=== PATIENT | male | born 1990 | race Caucasian/White ===

== ENCOUNTER 2017-06-02 22:09 | Emergency (ER) | payer MEDICAID ==
[~2017-06-02] VITALS: Ht 172.7 cm; Wt 67.5 kg
[~2017-06-02 22:09] MED LIST: ABAC1TAB14 PO; ALBU18HF INH; ALBUTEROL INH; AMOX-291; FLUT9.9S INH; LEVO750T26 PO; [UNRECOGNIZED DRUG - OTHER]
[2017-06-02 22:20] VITALS: BP 117/76
== END 2017-06-02 23:51 | disposition home or self-care (01) ==
LOC: ED 23:45
DX: A63.0 Anogenital (venereal) warts (principal); J45.909 Unspecified asthma, uncomplicated; Z86.14 Personal history of Methicillin resistant Staphylococcus aureus infection; F17.200 Nicotine dependence, unspecified, uncomplicated
CPT/HCPCS: 87491; 87591; 99284

== ENCOUNTER 2017-08-02 18:31 | Emergency (ER) | payer MEDICAID ==
[~2017-08-02] VITALS: Ht 170.2 cm; Wt 67.7 kg
[2017-08-02 18:35] VITALS: BP 132/73
[2017-08-02 19:19] LABS: BASOPHILS # (AUTO) 0.03 x10^3/uL (0-0.1); BASOPHILS % (AUTO) 0 % (0-1); EOSINOPHILS # (AUTO) 0.36 x10^3/uL (0-0.4); EOSINOPHILS % (AUTO) 4 % (1-7); LYMPHOCYTES # (AUTO) 3.14 x10^3/uL (1-3.4); LYMPHOCYTES % (AUTO) 38 % (22-44); MD NO; MEAN CORPUSCULAR HEMOGLOBIN 28.7 pg (27.5-34.5); MEAN CORPUSCULAR HGB CONC 33.6 g/dL (33.2-36.2); MEAN CORPUSCULAR VOLUME 85.4 fL (81-97); MEAN PLATELET VOLUME 7.4 fL (7.4-10.4); MONOCYTES # (AUTO) 0.71 x10^3/uL (0.2-0.8); MONOCYTES % (AUTO) 9 % (2-9); NEUTROPHILS # (AUTO) 4.09 x10^3/uL (1.8-6.8); NEUTROPHILS % (AUTO) 49 % (42-75); PLATELET COUNT 343 x10^3/uL (130-400); RED BLOOD COUNT 5.15 x10^6/uL (4.38-5.82); RED CELL DISTRIBUTION WIDTH 13.3 % (9.4-14.8)
[2017-08-02 19:30] LABS: ALBUMIN 3.4 g/dL (3.4-5.0); ANION GAP 9 mmol/L (5-15); CALCIUM 8.3 mg/dL (8.5-10.1); CHLORIDE 103 mmol/L (98-107); CREATININE 0.95 mg/dL (0.7-1.3)
[2017-08-02 20:28] LABS: MICROSCOPIC NOT IND
[2017-08-02 20:30] LABS: CULTURE INDICATED? NO
== END 2017-08-02 21:00 | disposition home or self-care (01) ==
LOC: ED 20:59
DX: K62.5 Hemorrhage of anus and rectum (principal); F17.210 Nicotine dependence, cigarettes, uncomplicated
CPT/HCPCS: 36415; 80048; 81003; 82040; 85025; 99285

== ENCOUNTER 2017-10-25 04:58 | Emergency (ER) | payer MEDICAID ==
[~2017-10-25] VITALS: Ht 170.2 cm; Wt 67.4 kg
[2017-10-25 05:01] VITALS: BP 119/88
[2017-10-25] MEDS ORDERED: METHOCARBAMOL 750 MG TABLET ONE (05:21)
[2017-10-25] MEDS ORDERED: KETOROLAC 30 MG/1 ML ONE (05:21)
[2017-10-25] MEDS ORDERED: KETOROLAC 30 MG/1 ML IM ONE (05:30)
[2017-10-25] MEDS ORDERED: METHOCARBAMOL 750 MG TABLET PO ONE (05:30)
== END 2017-10-25 06:48 | disposition left against medical advice (07) ==
LOC: ED 06:42
DX: M25.511 Pain in right shoulder (principal); Z21 Asymptomatic human immunodeficiency virus [HIV] infection status
CPT/HCPCS: 73030; 96372; 99284; J1885

== ENCOUNTER 2017-10-25 11:29 | Emergency (ER) | payer MEDICAID ==
[~2017-10-25] VITALS: Ht 172.7 cm; Wt 66.9 kg
[2017-10-25] MEDS ORDERED: DIAZEPAM 5 MG TABLET PO ONE (12:00)
[2017-10-25] MEDS ORDERED: DIAZEPAM 5 MG TABLET ONE (12:02)
[2017-10-25 12:27] VITALS: BP 130/91
== END 2017-10-25 12:30 | disposition home or self-care (01) ==
LOC: ED 12:22
DX: G24.3 Spasmodic torticollis (principal); B20 Human immunodeficiency virus [HIV] disease; J45.909 Unspecified asthma, uncomplicated; F15.10 Other stimulant abuse, uncomplicated; F17.200 Nicotine dependence, unspecified, uncomplicated; Z86.14 Personal history of Methicillin resistant Staphylococcus aureus infection
CPT/HCPCS: 99283

== ENCOUNTER 2018-02-19 16:20 | Emergency (ER) | payer MEDICAID ==
[~2018-02-19] VITALS: Ht 170.2 cm; Wt 66.4 kg
[2018-02-19 16:23] VITALS: BP 129/81
[2018-02-19] MEDS ORDERED: CYCLOBENZAPRINE 10 MG TABLET ONE (16:46)
[2018-02-19] MEDS ORDERED: KETOROLAC 30 MG/1 ML ONE (16:46)
[2018-02-19] MEDS ORDERED: CYCLOBENZAPRINE 10 MG TABLET PO ONE (17:00)
[2018-02-19] MEDS ORDERED: KETOROLAC 30 MG/1 ML IM ONE (17:00)
== END 2018-02-19 17:33 | disposition home or self-care (01) ==
LOC: ED 17:25
DX: M62.830 Muscle spasm of back (principal); M62.838 Other muscle spasm; Z21 Asymptomatic human immunodeficiency virus [HIV] infection status
CPT/HCPCS: 96372; 99283; J1885

== ENCOUNTER 2019-07-07 18:44 | Emergency (ER) | payer MEDICAID ==
[~2019-07-07] VITALS: Ht 170.2 cm; Wt 73.7 kg
[2019-07-07 18:55] VITALS: BP 124/80
--- NOTE | 2019-07-07 19:21 | NUR ---
PT WAS RELEASED FROM [facility] TODAY, ATE A VERY LARGE MEAL. NOW C/O GI DISCOMFORT AND DIARRHEA. PT ALSO STATES THAT HE WAS ON AUGMENTIN FOR A DENTAL ABSCESS, BUT THAT THE [facility]-TERM DID NOT SEND HIM WITH A RELEASE PRESCRIPTION TO COMPLETE THE SERIES. PT STATES HE HAS HAD 5 DAYS OF THE ATB. DENIES ANY FURTHER NEEDS AT THIS TIME.
--- NOTE | 2019-07-07 19:56 | NUR ---
PT PROVIDED STOOL SAMPLE, STOOL SOLID AND FORMED.
== END 2019-07-07 21:08 | disposition home or self-care (01) ==
LOC: ED 19:45
DX: K02.9 Dental caries, unspecified (principal); B34.9 Viral infection, unspecified; R19.7 Diarrhea, unspecified; J45.909 Unspecified asthma, uncomplicated; F17.200 Nicotine dependence, unspecified, uncomplicated; Z21 Asymptomatic human immunodeficiency virus [HIV] infection status
CPT/HCPCS: 99283

== ENCOUNTER 2019-07-31 14:29 | Emergency (ER) | payer MEDICAID ==
[~2019-07-31] VITALS: Ht 172.7 cm; Wt 69.0 kg
--- NOTE | 2019-07-31 14:41 | NUR ---
PT BIB [facility] FROM HOME FOR HEROIN OD. PER EMS, PT WAS FOUND ON SCENE UNRESPONSIVE AND APENIC WITH 02 SATS 20% ON ROOM AIR, PER EMS PT GIVEN NARCAN TOTAL OF 1MG. PER EMS, PT NOW AAO X 4, ROOM AIR. PT ARRIVED TO ED ON ROOM AIR, ON FULL MONITOR, NAD, AAO X 4. PT ABLE TO SPEAK IN FULL SENTENCES BUT APPEARS ANXIOUS AND RESTLESS ON GURNEY. SIDERAIL X [address]. PT STATES ONLY MEDICAL HX IS HIV AND TAKES MEDS FOR IT. SIGNIFICANT OTHER AT BEDSIDE AND MD IN ROOM FOR ASSESSMENT.
--- NOTE | 2019-07-31 14:54 | NUR ---
PT YELLING INTO HALLWAY, EDUCATED ON HOW TO USE CALL LIGHT.
[2019-07-31 15:42] VITALS: BP 104/63
--- NOTE | 2019-07-31 17:48 | NUR ---
Patient/Caregiver given discharge instructions and they have confirmed that they understand the instructions. Patient ambulatory with steady gait.
== END 2019-07-31 17:50 | disposition home or self-care (01) ==
LOC: ED 14:55
DX: T40.1X1A Poisoning by heroin, accidental (unintentional), initial encounter (principal); R09.81 Nasal congestion; R05 Cough; F17.210 Nicotine dependence, cigarettes, uncomplicated; J45.909 Unspecified asthma, uncomplicated; R00.0 Tachycardia, unspecified; Y92.89 Other specified places as the place of occurrence of the external cause
CPT/HCPCS: 93005; 99283

== ENCOUNTER 2019-08-17 19:51 | Emergency (ER) | payer MEDICAID ==
[~2019-08-17] VITALS: Ht 170.2 cm; Wt 70.0 kg
[2019-08-17 20:01] VITALS: BP 121/67
--- NOTE | 2019-08-17 20:09 | NUR ---
PT BIB [facility]. PT WAS AT [facility] WITH BOYFRIEND WHEN THE USED METH AND HEROIN. BOY FRIEND CALLED 911 WHEN PT "PASSED OUT". WHEN EMS ARRIVED THEY SAID HE WAS AWAKE AND RESPONSIVE AND HE WAS SMOKING A CIGARETTE. THEY DID NOT ADMINSTER NARCAN OR START IV. PT IS RESTING IN [facility]. ON 2 LITERS OF 02 VIA NC. CONNECTED TO OUTREACH CONSULTANT.
--- NOTE | 2019-08-17 20:10 | NUR ---
PT SEEN SPRINTING OUT THE AMBULANCE BAY DOORS. LOPEZ STEADY GAIT NOTED. PT IGNORED REQUESTS TO STOP.
== END 2019-08-17 20:19 ==
LOC: ED 20:05
DX: R41.82 Altered mental status, unspecified (principal); I51.7 Cardiomegaly; R00.0 Tachycardia, unspecified; Z53.21 Procedure and treatment not carried out due to patient leaving prior to being seen by health care provider
CPT/HCPCS: 93005

== ENCOUNTER 2021-01-20 12:09 | Emergency (ER) | payer MEDICAID ==
--- NOTE | 2021-01-20 13:44 | NUR ---
NA X 3 [id number]
== END 2021-01-20 13:49 ==
LOC: ED 12:15
DX: H57.13 Ocular pain, bilateral (principal); Z53.21 Procedure and treatment not carried out due to patient leaving prior to being seen by health care provider

== ENCOUNTER 2021-02-14 15:41 | Emergency (ER) | payer MEDICAID ==
[~2021-02-14] VITALS: Ht 172.7 cm; Wt 69.4 kg
[2021-02-14 15:45] VITALS: BP 152/101
[2021-02-14] MEDS ORDERED: OXYcodone/APAP 5/325MG TABLET ONE (19:16)
--- NOTE | 2021-02-14 19:18 | NUR ---
PA SAW PT IN TRIAGE, AND MEDICATED PT AND F/U AND D/C INSTRUCTIONS GIVEN TO PT AND HE V/U. PT AMBULATED TO DISCHARGE.
[2021-02-14] MEDS ORDERED: OXYcodone/APAP 5/325MG TABLET PO ONE (19:30)
== END 2021-02-14 19:27 | disposition home or self-care (01) ==
LOC: ED 19:21
DX: K64.8 Other hemorrhoids (principal); J45.909 Unspecified asthma, uncomplicated; F17.200 Nicotine dependence, unspecified, uncomplicated; Z21 Asymptomatic human immunodeficiency virus [HIV] infection status
CPT/HCPCS: 99283